=== PATIENT | male | born 1960 | race Caucasian/White ===

== ENCOUNTER 2016-06-11 19:49 | Emergency (ER) | payer OTHER ==
[~2016-06-11] VITALS: Ht 182.9 cm; Wt 108.0 kg
[2016-06-11 19:53] VITALS: TEMP 36.3; Ht 182.9 cm; Wt 108.0 kg
--- NOTE | 2016-06-11 20:14 | EMERGENCY ROOM VISIT NOTE ---
History Report prepared by Diana: Saleem Hancock Under the Supervision of: Dr. Deep Ramires M.D. First contact with patient: 19:59 Chief Complaint: RESPIRATORY PROBLEMS Stated Complaint: SOB History of Present Illness The patient is a 56 year old male who presents to the Emergency Room with complaints of persistent shortness of breath that started in the past hour or two. The patient says he was driving to his niece's graduation when he started to have trouble catching his breath. He states that he feels like he cannot get a full breath. He says this has happened before, as he has a history of a heart attack in 2013. The patient had triple bypass surgery as well as a new mitral "pig" valve. He had 2 stents put in after the heart attack, but the patient notes that he still has plaque buildup. He denies any new pain, including chest pain. He has chronic back and shoulder pain. The patient has not had any recent illnesses, and he is not coughing more than usual. He is on Coumadin and Aspirin daily. The patient is diabetic and takes Metformin and an injection as needed. Source of History: patient Onset: Past hour or two Position: other (global - shortness of breath) Timing: other (persistent) Associated Symptoms: No chest pain, No cough Note: Associated symptoms: Denies any new pain or recent illnesses. Has chronic shoulder and back pain. Review of Systems See HPI for pertinent positives & negatives. A total of 10 systems reviewed and were otherwise negative. Past Medical & Surgical Medical Problems: (1) Diabetes (2) Heart attack Surgical Problems: (1) Mitral valve replaced Family History Unobtainable Social History Smoking Status: Former Smoker Marital Status: single Occupation Status: unemployed Current/Historical Medications Scheduled Albiglutide (Tanzeum), 30 MG SQ WK Aspirin (Aspirin Ec), 81 MG PO DAILY Atorvastatin (Lipitor), 80 MG PO PM Baclofen (Lioresal), 10 MG PO TID Duloxetine Hcl (Cymbalta), 60 MG PO HS Empagliflozin (Jardiance), 10 MG PO DAILY Gabapentin (Neurontin), 800 MG PO TID Insulin Aspart (Novolog Flexpen), 4 UNITS SQ AC Insulin Glargine (Lantus Solostar), 50 UNITS SQ HS Lisinopril (Zestril), 2.5 MG PO DAILY Metformin Hcl (Glucophage), 1,000 MG PO BIDM Metoprolol Succ (Toprol Xl) (Toprol-Xl ), 100 MG PO DAILY Pantoprazole (Protonix), 40 MG PO DAILY Sertraline (Zoloft), 100 MG PO DAILY Tamsulosin Hcl (Flomax), 0.8 MG PO DAILY Warfarin Sod (Jantoven), 5 MG PO DAILY Allergies Coded Allergies: No Known Allergies (Unverified , 06/11/16) Physical Exam Vital Signs Date Time Temp Pulse Resp B/P Pulse Ox O2 Delivery O2 Flow Rate FiO2 06/11/16 22:38 73 18 105/66 95 Room Air 06/11/16 21:39 77 18 106/58 95 Room Air 06/11/16 20:42 76 06/11/16 20:25 98 Room Air 06/11/16 20:09 Room Air 06/11/16 19:53 36.3 80 22 121/71 100 Room Air Physical Exam GENERAL: Patient is in no acute distress. HEENT: No acute trauma, normocephalic atraumatic, mucous membranes moist, no nasal congestion, no scleral icterus. NECK: No stridor, no adenopathy, no meningismus, trachea is midline. LUNGS: Clear to auscultation bilaterally, no wheeze, no rhonchi, breath sounds equal. HEART: 2/6 diastolic murmur. Normal rate and normal rhythm. ABDOMEN: Soft, nontender, bowel sounds positive, no hernias, no peritonitis. EXTREMITIES: No cyanosis or edema, full range of motion of all the joints without pain or difficulty, no signs for acute trauma. NEUROLOGIC: Oriented x 3, no acute motor or sensory deficits, no focal weakness. Subtle speech slurring. No pronator drift or cerebellar dysfunction. SKIN: No rash, no jaundice, no diaphoresis. Medical Decision & Procedures ER Provider Diagnostic Interpretation: X ray results and stated below per my interpretation and radiologist interpretation. Other radiology results and stated below per my review and radiologist interpretation: CHEST ONE VIEW PORTABLE CLINICAL HISTORY: EVALUATE RESPIRATORY DISTRESS. DYSPNEA dyspnea COMPARISON STUDY: No previous studies for comparison. FINDINGS: Prior median sternotomy. Mild cardiomegaly. Lungs are clear. IMPRESSION: No acute process. Chronic and postoperative change. Electronically signed by: Jacobo Medley M.D. 06/11/2016 8:47 PM Dictated Date/Time: 06/11/2016 8:[address] CT DOSE: 884.08 mGy.cm HISTORY: Mental status change stroke like symptoms, on coumadin TECHNIQUE: Multiaxial CT images of the head were performed without the use of intravenous contrast. Comparison: None. Findings: The paranasal sinuses and mastoid air cells are clear. The calvarium and skull base are intact. The ventricles and sulci are within normal limits. There is no mass, hematoma, midline shift, or acute infarct. Impression: No acute intracranial abnormality. Electronically signed by: Jacobo Medley M.D. 06/11/2016 10:21 PM Dictated Date/Time: 06/11/2016 10:21 PM Laboratory Results 06/11/16 20:22 Red Blood Count 5.15, Mean Corpuscular Volume 75.9, Mean Corpuscular Hemoglobin 22.7, Mean Corpuscular Hemoglobin Concent 29.9, Mean Platelet Volume 8.5, Neutrophils (%) (Auto) 57.7, Lymphocytes (%) (Auto) 27.3, Monocytes (%) (Auto) 8.1, Eosinophils (%) (Auto) 6.4, Basophils (%) (Auto) 0.2, Neutrophils # (Auto) 5.52, Lymphocytes # (Auto) 2.61, Monocytes # (Auto) 0.77, Eosinophils # (Auto) 0.61, Basophils # (Auto) 0.02 06/11/16 20:22 Test 06/11/16 20:22 06/11/16 22:36 White Blood Count 9.56 K/uL (4.8-10.8) Red Blood Count 5.15 M/uL (4.7-6.1) Hemoglobin 11.7 g/dL (14.0-18.0) Hematocrit 39.1 % (42-52) Mean Corpuscular Volume 75.9 fL (80-100) Mean Corpuscular Hemoglobin 22.7 pg (25-34) Mean Corpuscular Hemoglobin Concent 29.9 g/dl (32-36) Platelet Count 285 K/uL (130-400) Mean Platelet Volume 8.5 fL (7.4-10.4) Neutrophils (%) (Auto) 57.7 % Lymphocytes (%) (Auto) 27.3 % Monocytes (%) (Auto) 8.1 % Eosinophils (%) (Auto) 6.4 % Basophils (%) (Auto) 0.2 % Neutrophils # (Auto) 5.52 K/uL (1.4-6.5) Lymphocytes # (Auto) 2.61 K/uL (1.2-3.4) Monocytes # (Auto) 0.77 K/uL (0.11-0.59) Eosinophils # (Auto) 0.61 K/uL (0-0.5) Basophils # (Auto) 0.02 K/uL (0-0.2) RDW Standard Deviation 57.1 fL (36.4-46.3) RDW Coefficient of Variation 20.5 % (11.5-14.5) Immature Granulocyte % (Auto) 0.3 % Immature Granulocyte # (Auto) 0.03 K/uL (0.00-0.02) Hypochromasia PRESENT Anisocytosis PRESENT Microcytosis PRESENT Prothrombin Time 16.1 SECONDS (9.0-12.0) Prothromb Time International Ratio 1.5 (0.9-1.1) Activated Partial Thromboplast Time 27.4 SECONDS (21.0-31.0) Partial Thromboplastin Ratio 1.1 Anion Gap 8.0 mmol/L (3-11) Est Creatinine Clear Calc Drug Dose 108.0 ml/min Estimated GFR () 100.7 Estimated GFR (Non- 86.9 BUN/Creatinine Ratio 14.3 (10-20) Bedside Glucose 158 mg/dl (70-99) Calcium Level 8.8 mg/dl (8.5-10.1) Total Bilirubin 0.3 mg/dl (0.2-1) Aspartate Amino Transf (AST/SGOT) 38 U/L (15-37) Alanine Aminotransferase (ALT/SGPT) 50 U/L (12-78) Alkaline Phosphatase 170 U/L (45-117) Total Protein 8.3 gm/dl (6.4-8.2) Albumin 3.4 gm/dl (3.4-5.0) Globulin 4.9 gm/dl (2.5-4.0) Albumin/Globulin Ratio 0.7 (0.9-2) Ethyl Alcohol mg/dL 267.0 mg/dl (0-3) Bedside Troponin I 0.000 ng/ml (0-0.045) Laboratory results reviewed by . ECG Indication: SOB/dyspnea Rate (beats per minute): 79 Rhythm: normal sinus Findings: no acute ischemic change, no ectopy ED Course 1999: The patient was evaluated in room C12B. A complete history and physical exam was performed. 2139: I reevaluated the patient and he is doing okay, but he wants a CT scan of his head, as he is afraid that he had a stroke. Medical Decision Differential diagnosis includes but is not limited to cardiac valve failure, CHF , pneumonia, pneumothorax, cardiac ischemia, NM, anemia, dehydration, alcohol abuse, stroke. There is no leukocytosis. The patient is mildly anemic but the number is not critical or in need of emergent correction. No significant electrolyte abnormality, kidney failure or hepatitis. EKG shows a normal sinus rhythm, no acute ischemia. Cardiac enzyme testing 2 is not consistent with acute cardiac injury. Chest x-ray does not show pneumonia or CHF. There was no pneumothorax. Some cardiomegaly was seen. Brain CT shows no acute bleed or mass effect. Alcohol level was quite elevated at 267. INR is elevated consistent with his Coumadin use. The patient presented with some speech slurring and complained of being short of breath. He was concerned about his heart and also worried about stroke. I did not find evidence for focal neurologic deficit on exam. His speech slurring seemed more consistent with alcohol use. Alcohol level did return elevated. His cardiac workup was reassuring. Chest film was reassuring. There was no hypoxia. The patient was given his typical dose of night time oral Coumadin. He was due for this medication. The patient was reassured. I think his presentation today is primarily a result of his alcohol use. He cannot drive and states that he will call his brother for a ride home. He was encouraged to return for worsening symptoms and to be sure he takes his medications as previously prescribed. He was told not to use alcohol in excess. Impression Primary Impression: Shortness of breath Additional Impressions: Slurred speech Alcohol use Scribe Attestation The scribe's documentation has been prepared under my direction and personally reviewed by me in its entirety. I confirm that the note above accurately reflects all work, treatment, procedures, and medical decision making performed by me. Departure Information Dispostion Home / Self-Care Referrals No Doctor, Assigned (PCP) Patient Instructions My [facility] Problem Qualifiers
[2016-06-11 20:25] VITALS: O2SAT 98
[2016-06-11] MEDS ORDERED: DULO60CA44 PO (20:30)
[2016-06-11] MEDS ORDERED: INSDGIPEN SQ (20:31)
[2016-06-11] MEDS ORDERED: NVLGI/PEN SQ (20:33)
[2016-06-11] MEDS ORDERED: SERT-234 PO (20:34)
[2016-06-11] MEDS ORDERED: GABA800T PO (20:35)
[2016-06-11] MEDS ORDERED: ALBI1INJ SQ (20:36)
[2016-06-11 20:37] LABS: BASO % 0.2 %; BASO ABS # 0.02 K/uL (0-0.2); EOS % 6.4 %; HEMATOCRIT 39.1 % (42-52); IG% 0.3 %; LYMPH % 27.3 %; LYMPH ABS # 2.61 K/uL (1.2-3.4); MEAN CELL VOLUME 75.9 fL (80-100); MEAN CORPUSCULAR HEMOGLOBIN 22.7 pg (25-34); MEAN CORPUSCULAR HGB CONC 29.9 g/dl (32-36); MEAN PLATELET VOLUME 8.5 fL (7.4-10.4); MONO % 8.1 %; NEUT % 57.7 %; PLATELET COUNT 285 K/uL (130-400); RED BLOOD COUNT 5.15 M/uL (4.7-6.1); WHITE BLOOD COUNT 9.56 K/uL (4.8-10.8)
[2016-06-11] MEDS ORDERED: ASPI81TA28 PO (20:37)
[2016-06-11] MEDS ORDERED: ATOR-26 PO (20:38)
[2016-06-11] MEDS ORDERED: BACL10TA PO (20:39)
[2016-06-11] MEDS ORDERED: EMPA1TAB PO (20:40)
[2016-06-11] MEDS ORDERED: LISI-789 PO (20:42)
[2016-06-11] MEDS ORDERED: METF-384 PO (20:43)
[2016-06-11] MEDS ORDERED: METO100T44 PO (20:47)
[2016-06-11 20:48] LABS: INR 1.5 (0.9-1.1); PARTIAL THROMBOPLASTIN RATIO 1.1; PROTHROMBIN TIME (PATIENT) 16.1 SECONDS (9.0-12.0)
[2016-06-11] MEDS ORDERED: PANT40TA PO (20:48)
--- NOTE | 2016-06-11 20:49 | DIAGNOSTIC IMAGING REPORT ---
CHEST ONE VIEW PORTABLE CLINICAL HISTORY: EVALUATE RESPIRATORY DISTRESS. DYSPNEA dyspnea COMPARISON STUDY: No previous studies for comparison. FINDINGS: Prior median sternotomy. Mild cardiomegaly. Lungs are clear. IMPRESSION: No acute process. Chronic and postoperative change. Electronically signed by: Jacobo Medley M.D. 06/11/2016 8:47 PM Dictated Date/Time: 06/11/2016 8:47 PM
[2016-06-11] MEDS ORDERED: TAMS0.4C38 PO (20:50)
[2016-06-11] MEDS ORDERED: WARF5TAB7 PO (20:53)
[2016-06-11 20:55] LABS: BUN/CREATININE RATIO 14.3 (10-20); CREATININE 0.97 mg/dl (0.60-1.40); POTASSIUM 4.1 mmol/L (3.5-5.1)
[2016-06-11 20:58] LABS: ALB/GLOB RATIO 0.7 (0.9-2)
[2016-06-11 21:10] LABS: ANISOCYTOSIS PRESENT; COMPLETE YES; HYPOCHROMIA PRESENT; MICROCYTOSIS PRESENT
[2016-06-11 22:14] LABS: CALCIUM 8.8 mg/dl (8.5-10.1)
--- NOTE | 2016-06-11 22:23 | DIAGNOSTIC IMAGING REPORT ---
HEAD CT NONCONTRAST CT DOSE: 884.08 mGy.cm HISTORY: Mental status change stroke like symptoms, on coumadin TECHNIQUE: Multiaxial CT images of the head were performed without the use of intravenous contrast. Comparison: None. Findings: The paranasal sinuses and mastoid air cells are clear. The calvarium and skull base are intact. The ventricles and sulci are within normal limits. There is no mass, hematoma, midline shift, or acute infarct. Impression: No acute intracranial abnormality. Electronically signed by: Jacobo Medley M.D. 06/11/2016 10:21 PM Dictated Date/Time: 06/11/2016 10:21 PM
[2016-06-11] MEDS ORDERED: WARFARIN SOD 5 MG TAB PO ONE (22:45)
[2016-06-12 00:03] VITALS: BP 138/87; PULSE 86; O2SAT 96
--- NOTE | 2016-06-12 01:49 | EMERGENCY ROOM VISIT NOTE ---
ED Visit Note This patient was signed out to me by Dr. Ramires at shift change. At which point , the patient was discharged and was supposed to get a ride home from his brother. The family would not come pick him up however as they were out. He told me he could not get a hold of anybody. Apparently his mother refused to pick him up. He is asking to leave. He does have a car here however his blood alcohol is 270 and I told him he cannot drive. I suggested we keep him here for several hours and let him sober up and have somebody come get him. He did not want to do this. He is alert or 3 answers all questions appropriately and is ambulating without difficulty and clinically does not appear to be significant intoxicated. He is willing to take a cab home back to the [facility] in and we called confirm that he does have a room there we walked him out to the cab to ensure that he did not drive and I told him to check into his room when he gets there and do not go out and drink anymore. He was in agreement with the plan and was discharged.
== END 2016-06-12 00:04 | disposition home or self-care (01) ==
LOC: C.EDB 19:53 → C.EDC 06-12 00:04
DX: R06.02 Shortness of breath (principal); R47.81 Slurred speech; F10.129 Alcohol abuse with intoxication, unspecified; E11.9 Type 2 diabetes mellitus without complications; I05.9 Rheumatic mitral valve disease, unspecified; I51.9 Heart disease, unspecified; Z79.82 Long term (current) use of aspirin; Z79.4 Long term (current) use of insulin; Z79.84 Long term (current) use of oral hypoglycemic drugs; Z79.899 Other long term (current) drug therapy; Z87.891 Personal history of nicotine dependence